=== PATIENT | male | born 1960 | race Asian ===

== ENCOUNTER 2019-12-11 11:50 | Inpatient (IN) | payer MEDICAID, SELFPAY ==
[~2019-12-11] VITALS: Ht 152.4 cm; Wt 74.2 kg
[2019-12-11 12:09] VITALS: BP_SYST 116
[2019-12-11 13:23] LABS: CREATININE 1.15 mg/dL (0.55-1.30); POTASSIUM 4.3 mmol/L (3.5-5.1)
[2019-12-11 13:32] LABS: BASOPHILS % (AUTO) 0.4 % (0.0-2.0); EOSINOPHILS % (AUTO) 0.1 % (0.0-4.0); HEMATOCRIT 57.4 % (36-54); HEMOGLOBIN 19.3 g/dL (14.0-18.0); LYMPHOCYTES # (AUTO) 1.2 K/uL (1.0-5.5); LYMPHOCYTES % (AUTO) 16.1 % (20.5-51.5); MEAN CORPUSCULAR HEMOGLOBIN 33 pg (27-31); MEAN CORPUSCULAR HGB CONC 34 % (32-36); MEAN CORPUSCULAR VOLUME 97 fL (79.0-98.0); MONOCYTES % (AUTO) 13.8 % (1.7-9.3); NEUTROPHILS % (AUTO) 69.6 % (40.0-70.0); PLATELET COUNT (AUTO) 157 K/uL (130-430); RED BLOOD CELL COUNT(AUTO) 5.93 MIL/uL (4.2-6.2); RED CELL DISTRIBUTION WIDTH 13.6 % (9.0-15.0); WHITE BLOOD COUNT (AUTO) 7.2 K/uL (4.8-10.8)
[2019-12-11 13:34] LABS: ALBUMIN 3.3 g/dL (3.4-4.8); TOTAL BILIRUBIN 0.9 mg/dL (0.0-1.0)
[2019-12-11 13:42] LABS: BILIRUBIN,URINE 1+ (NEGATIVE); BLOOD, URINE NEGATIVE (NEGATIVE); CLARITY/URINE CLEAR (CLEAR); COLOR,URINE YELLOW (YELLOW); GLUCOSE,URINE NEGATIVE (NEGATIVE); KETONES,URINE 1+ (NEGATIVE); LEUKOCYTE ESTERASE ,URINE NEGATIVE (NEGATIVE); NITRITE, URINE NEGATIVE (NEGATIVE); PROTEIN URINE TRACE (NEGATIVE)
[2019-12-11] MEDS ORDERED: OLAN2.5T29 PO (14:24)
[2019-12-11] MEDS ORDERED: DIVA500T4 PO (14:24)
[2019-12-11] MEDS ORDERED: MULT-1089 PO (14:24)
[2019-12-11] MEDS ORDERED: ONDANSETRON HCL 4 MG/2 ML VIAL IVP PRN (14:30)
[2019-12-11] MEDS ORDERED: MORPHINE 2 MG/ML INJ. SYRINGE IVP PRN ×2 (14:30)
[2019-12-11] MEDS: D5/0.45 NS 1,000 ML IV SCH (15:05)
[2019-12-11 16:10] VITALS: BP_SYST 140
[2019-12-11] MEDS: OLANZapine 2.5 MG TABLET PO SCH (23:05)
[2019-12-11] MEDS: DIVALPROEX SODIUM 500 MG TAB.SR.24H (DEPAKOTE ER) PO SCH (23:05)
[2019-12-12 01:12] VITALS: BP_SYST 118
[2019-12-12 07:07] LABS: BASOPHILS % (AUTO) 0.2 % (0.0-2.0); EOSINOPHILS % (AUTO) 0.6 % (0.0-4.0); HEMOGLOBIN 16.9 g/dL (14.0-18.0); LYMPHOCYTES # (AUTO) 1.3 K/uL (1.0-5.5); LYMPHOCYTES % (AUTO) 17.8 % (20.5-51.5); MEAN CORPUSCULAR HEMOGLOBIN 33 pg (27-31); MEAN CORPUSCULAR HGB CONC 34 % (32-36); MEAN CORPUSCULAR VOLUME 98 fL (79.0-98.0); MONOCYTES # (AUTO) 0.9 K/uL (0.0-1.0); MONOCYTES % (AUTO) 12.1 % (1.7-9.3); NEUTROPHILS # (AUTO) 5.1 K/uL (1.8-7.7); NEUTROPHILS % (AUTO) 69.3 % (40.0-70.0); PLATELET COUNT (AUTO) 137 K/uL (130-430); RED BLOOD CELL COUNT(AUTO) 5.11 MIL/uL (4.2-6.2); RED CELL DISTRIBUTION WIDTH 13.7 % (9.0-15.0); WHITE BLOOD COUNT (AUTO) 7.4 K/uL (4.8-10.8)
[2019-12-12 08:00] VITALS: BP_SYST 147
[2019-12-12 08:02] LABS: ALBUMIN 2.7 g/dL (3.4-4.8); CALCIUM 8.6 mg/dL (8.4-11.0); CREATININE 0.87 mg/dL (0.55-1.30); POTASSIUM 4.1 mmol/L (3.5-5.1); THYROID STIMULATING HORMONE 1.45 uIu/mL (0.36-3.74)
[2019-12-12] MEDS: D5/0.45 NS 1,000 ML IV SCH (09:43)
[2019-12-12] MEDS: DIVALPROEX SODIUM 500 MG TAB.SR.24H (DEPAKOTE ER) PO SCH ×2 (09:45→20:28)
[2019-12-12] MEDS: MULTIVITAMINS TAB 1 TABLET PO SCH (09:45)
[2019-12-12] MEDS: OLANZapine 2.5 MG TABLET PO SCH ×2 (09:45→20:28)
[2019-12-12 12:16] VITALS: BP_SYST 144
[2019-12-12 16:01] VITALS: BP_SYST 122
[2019-12-12 20:00] VITALS: BP_SYST 149
[2019-12-13] VITALS: BP_SYST 143
[2019-12-13] MEDS: D5/0.45 NS 1,000 ML IV SCH (05:42)
[2019-12-13 06:24] LABS: BASOPHILS % (AUTO) 0.5 % (0.0-2.0); EOSINOPHILS # (AUTO) 0.1 K/uL (0.0-0.4); EOSINOPHILS % (AUTO) 1.5 % (0.0-4.0); HEMOGLOBIN 16.3 g/dL (14.0-18.0); LYMPHOCYTES # (AUTO) 1.3 K/uL (1.0-5.5); LYMPHOCYTES % (AUTO) 23.1 % (20.5-51.5); MEAN CORPUSCULAR HEMOGLOBIN 33 pg (27-31); MEAN CORPUSCULAR HGB CONC 34 % (32-36); MEAN CORPUSCULAR VOLUME 97 fL (79.0-98.0); MONOCYTES # (AUTO) 0.7 K/uL (0.0-1.0); MONOCYTES % (AUTO) 11.4 % (1.7-9.3); NEUTROPHILS # (AUTO) 3.7 K/uL (1.8-7.7); NEUTROPHILS % (AUTO) 63.5 % (40.0-70.0); PLATELET COUNT (AUTO) 143 K/uL (130-430); RED BLOOD CELL COUNT(AUTO) 4.96 MIL/uL (4.2-6.2); RED CELL DISTRIBUTION WIDTH 13.6 % (9.0-15.0); WHITE BLOOD COUNT (AUTO) 5.8 K/uL (4.8-10.8)
[2019-12-13 08:00] VITALS: BP_SYST 114
[2019-12-13] MEDS: OLANZapine 2.5 MG TABLET PO SCH ×2 (09:14→20:41)
[2019-12-13] MEDS: MULTIVITAMINS TAB 1 TABLET PO SCH (09:14)
[2019-12-13] MEDS: DIVALPROEX SODIUM 500 MG TAB.SR.24H (DEPAKOTE ER) PO SCH ×2 (09:14→20:41)
[2019-12-13 12:00] VITALS: BP_SYST 115
[2019-12-13 16:13] VITALS: BP_SYST 138
[2019-12-13 20:00] VITALS: BP_SYST 127
[2019-12-14] VITALS: BP_SYST 117
[2019-12-14] MEDS: D5/0.45 NS 1,000 ML IV SCH ×2 (01:42→08:30)
[2019-12-14 08:00] VITALS: BP_SYST 142
[2019-12-14] MEDS: MULTIVITAMINS TAB 1 TABLET PO SCH (08:29)
[2019-12-14] MEDS: DIVALPROEX SODIUM 500 MG TAB.SR.24H (DEPAKOTE ER) PO SCH ×2 (08:29→20:08)
[2019-12-14] MEDS: OLANZapine 2.5 MG TABLET PO SCH ×2 (08:29→20:08)
[2019-12-14 11:30] VITALS: BP_SYST 131
[2019-12-14 15:30] VITALS: BP_SYST 122
[2019-12-14 20:00] VITALS: BP_SYST 132
[2019-12-15] VITALS: BP_SYST 132
[2019-12-15] MEDS: D5/0.45 NS 1,000 ML IV SCH (04:39)
[2019-12-15 07:07] LABS: BASOPHILS % (AUTO) 0.5 % (0.0-2.0); EOSINOPHILS # (AUTO) 0.1 K/uL (0.0-0.4); EOSINOPHILS % (AUTO) 1.7 % (0.0-4.0); HEMATOCRIT 50.7 % (36-54); HEMOGLOBIN 17.2 g/dL (14.0-18.0); LYMPHOCYTES # (AUTO) 1.3 K/uL (1.0-5.5); MEAN CORPUSCULAR HEMOGLOBIN 33 pg (27-31); MEAN CORPUSCULAR HGB CONC 34 % (32-36); MEAN CORPUSCULAR VOLUME 97 fL (79.0-98.0); MONOCYTES # (AUTO) 0.7 K/uL (0.0-1.0); MONOCYTES % (AUTO) 11.3 % (1.7-9.3); NEUTROPHILS % (AUTO) 65.5 % (40.0-70.0); PLATELET COUNT (AUTO) 172 K/uL (130-430); RED BLOOD CELL COUNT(AUTO) 5.21 MIL/uL (4.2-6.2); RED CELL DISTRIBUTION WIDTH 13.6 % (9.0-15.0); WHITE BLOOD COUNT (AUTO) 6.1 K/uL (4.8-10.8)
[2019-12-15] MEDS: OLANZapine 2.5 MG TABLET PO SCH ×2 (10:22→20:48)
[2019-12-15] MEDS: MULTIVITAMINS TAB 1 TABLET PO SCH (10:22)
[2019-12-15] MEDS: DIVALPROEX SODIUM 500 MG TAB.SR.24H (DEPAKOTE ER) PO SCH ×2 (10:23→20:48)
[2019-12-15 11:28] VITALS: BP_SYST 121
[2019-12-15 15:37] VITALS: BP_SYST 130
[2019-12-15 20:00] VITALS: BP_SYST 149
[2019-12-16] VITALS (8 sets, daily range): BP systolic 123–143
[2019-12-16] MEDS: D5/0.45 NS 1,000 ML IV SCH (03:40)
[2019-12-16] MEDS: DIVALPROEX SODIUM 500 MG TAB.SR.24H (DEPAKOTE ER) PO SCH ×2 (09:30→22:31)
[2019-12-16] MEDS: OLANZapine 2.5 MG TABLET PO SCH ×2 (09:30→22:31)
[2019-12-16] MEDS: MULTIVITAMINS TAB 1 TABLET PO SCH (09:30)
[2019-12-16] MEDS ORDERED: IPRATROPIUM/ALBUTEROL SULFATE 3 ML AMPUL.NEB (DUONEB) INH PRN (13:45)
[2019-12-17] VITALS: BP_SYST 122; BP_SYST 135
[2019-12-17 06:29] LABS: BASOPHILS % (AUTO) 0.4 % (0.0-2.0); EOSINOPHILS % (AUTO) 0.6 % (0.0-4.0); HEMATOCRIT 48.3 % (36-54); HEMOGLOBIN 16.7 g/dL (14.0-18.0); LYMPHOCYTES # (AUTO) 1.2 K/uL (1.0-5.5); LYMPHOCYTES % (AUTO) 14.7 % (20.5-51.5); MEAN CORPUSCULAR HEMOGLOBIN 33 pg (27-31); MEAN CORPUSCULAR HGB CONC 35 % (32-36); MEAN CORPUSCULAR VOLUME 96 fL (79.0-98.0); MONOCYTES % (AUTO) 11.7 % (1.7-9.3); NEUTROPHILS % (AUTO) 72.6 % (40.0-70.0); PLATELET COUNT (AUTO) 187 K/uL (130-430); RED BLOOD CELL COUNT(AUTO) 5.01 MIL/uL (4.2-6.2); RED CELL DISTRIBUTION WIDTH 13.5 % (9.0-15.0); WHITE BLOOD COUNT (AUTO) 8.2 K/uL (4.8-10.8)
[2019-12-17 06:55] LABS: CALCIUM 8.6 mg/dL (8.4-11.0); CREATININE 0.83 mg/dL (0.55-1.30)
[2019-12-17 08:57] VITALS: BP_SYST 127
[2019-12-17] MEDS: MULTIVITAMINS TAB 1 TABLET PO SCH (09:01)
[2019-12-17] MEDS: DIVALPROEX SODIUM 500 MG TAB.SR.24H (DEPAKOTE ER) PO SCH (09:01)
[2019-12-17] MEDS: OLANZapine 2.5 MG TABLET PO SCH (09:01)
[2019-12-17 12:08] VITALS: BP_SYST 125
[2019-12-17 15:11] VITALS: BP_SYST 125
[2019-12-17 16:10] VITALS: BP_SYST 104
[2019-12-18] MEDS ORDERED: ENOXAPARIN SODIUM 40 MG/0.4 ML SYRINGE SUBCUT SCH (09:00)
== END 2019-12-17 16:31 | DRG 347 ==
LOC: SED 11:50 → SMU 14:30
PROVIDERS: ADMIT Internal Medicine; ATTEND Internal Medicine
DX: M48.061 Spinal stenosis, lumbar region without neurogenic claudication (principal); D75.1 Secondary polycythemia; J44.9 Chronic obstructive pulmonary disease, unspecified; E86.0 Dehydration; F25.0 Schizoaffective disorder, bipolar type; G24.01 Drug induced subacute dyskinesia; G89.29 Other chronic pain; I10 Essential (primary) hypertension; M47.816 Spondylosis without myelopathy or radiculopathy, lumbar region; N39.498 Other specified urinary incontinence; Z20.828 Contact with and (suspected) exposure to other viral communicable diseases; Z79.899 Other long term (current) drug therapy; Z81.8 Family history of other mental and behavioral disorders
CPT/HCPCS: 36415; 71045; 72131; 72148; 76770; 80048; 80053; 80061; 81003; 84443-TC; 85025; 87040-TC; 87081; 93005; 93306; 94640; 94760; 97110-GP; 97116-GP; 97530-GP; J7042